=== PATIENT | male | born 1980 | race Caucasian/White ===

== ENCOUNTER 2017-12-18 02:02 | Emergency (ER) | payer OTHER ==
[~2017-12-18] VITALS: Ht 180.3 cm; Wt 90.7 kg
[~2017-12-18 02:02] MED LIST: AMBIEN5 M1 PO; BACTRIM DS 8001 TAB PO; BACTRIM DS TAB1 EACH PO; BACTROBAN OINT.1 BOX NASB; BACTROBAN OINT.30 GM NAS; BENZTROPINE MESY1 M1 PO; BENZTROPINE MESY2 M1 PO; BENZTROPINE MESY2 MG PO; CEPHALEXIN500 MG PO; CHLORPROMAZINE100 M2 PO; CHLORPROMAZINE50 M1 PO; CIPRO 500MG (E500 MG PO; CLEOCIN HCL300 MG PO; CLINDAMYCIN HY300 MG PO; CLONAZEPAM1 M2 PO; CLONAZEPAM2 M2 PO; HYDROCODONE/ACE1 TA1 PO; IBUPROFEN800 M1 PO; LOTRIMIN CR1 %/30 GM TOP; OXYCODONE5 M1 PO; PERCOCET 325 MG1 TA2 PO; PERCOCET 5-3251 EACH PO; PROPRANOLOL ER80 MG PO; PROPRANOLOL HCL40 MG PO; SERTRALINE HCL100 MG PO; SERTRALINE HYD100 MG PO; TOPAMAX50 M1 PO; TOPIRAMATE100 M2 PO; VIBRAMYCIN 100100 MG PO; VICODIN 300 MG-1 TAB PO; VICODIN 5-3001 EACH PO; VICODIN5-300 PO
--- NOTE | 2017-12-18 02:30 | ED UPPER/LOWER EXTREMITY COMPL ---
History of Present Illness General Chief Complaint: Hand or Wrist Injury Stated Complaint: LEFT RING FINGER INJURY Source: patient Exam Limitations: no limitations Vital Signs & Intake/Output Vital Signs & Intake/Output Vital Signs Date Time Temp Pulse Resp B/P B/P Pulse O2 O2 Flow FiO2 Mean Ox Delivery Rate 12/18 0346 97.6 77 20 138/89 99 Room Air 12/18 228 97.9 78 18 132/66 97 Room Air 12/19 223 Room Air Allergies Coded Allergies: Penicillins (Severe, ANAPHYLAXIS 12/18/17) red dye (Mild, ITCHING 12/18/17) Reconcile Medications Benztropine Mesylate 1 MG TABLET 1 TAB PO DAILY ANXIETY (Reported) Chlorpromazine HCl 100 MG TABLET 1 TAB PO DAILY SCHIZOPHRENIA (Reported) Chlorpromazine HCl 100 MG TABLET 3 TAB PO QPM SCHIZOPHRENIA (Reported) Clonazepam 2 MG TABLET 0.5 TAB PO BID ANXIETY (Reported) Ibuprofen 800 MG TABLET 1 TAB PO TID PRN pain Ibuprofen 800 MG TABLET 1 TAB PO Q8 PRN PAIN Ibuprofen 800 MG TABLET 1 TAB PO TID PRN pain Oxycodone HCl/Acetaminophen (Percocet 5-325 MG Tablet) 5 MG-325 MG TABLET 1 TAB PO BID PRN pain Sertraline HCl 100 MG TABLET 2 TAB PO DAILY MENTAL HEALTH (Reported) Topiramate 100 MG TABLET 1 TAB PO BID HEADACHES (Reported) Zolpidem Tartrate (Ambien) 5 MG TABLET 1 TAB PO QPM SLEEP (Reported) Triage Note: TRIAGE: PATIENT TO ER FROM HOME REPORTING S/P INJURY TO L RING FINGER APPROX 3 DAYS AGO, +SWELLING SINCE. PATIENT NOTED W/ RING TO FINGER, UNABLE TO REMOVE D/T SWELLING. "MY VISITING NURSE TOLD ME TO GET HERE PATRICIA TO REMOVE MY RING," PER PATIENT. PATIENT ALSO STATES "TRIED TO REMOVE IT MYSELF W/ NAIL CLIPPERS, DIDN'T WORK." Triage Nurses Notes Reviewed? yes Onset: Abrupt Duration: hour(s): Timing: single episode today Severity: mild Pain/Injury Location: Left: 4th finger. Method of Injury: direct blow Modifying Factors: Worsens With: movement. Associated Symptoms: left 4th digit swelling HPI: 37 yo gentleman, recently endured Right MCP fractures, presents with left 4th digit pain. He notes that he caught his ring on something and kamala his left finger. "I think it's broken." He notes swelling, pain, and purplish discoloration. He would like his ring removed. "The finger is swollen and I can't get my ring off." He is otherwise well. Past History Travel History Traveled to [place] past 21 day No Medical History Any Pertinent Medical History? see below for history Neurological: NONE EENT: NONE Cardiovascular: NONE Respiratory: NONE Gastrointestinal: NONE Hepatic: NONE Renal: NONE Musculoskeletal: NONE Psychiatric: bipolar disease, depression, schizophrenia, PARANOID PTSD Endocrine: NONE Blood Disorders: NONE Cancer(s): NONE HVAC ENGINEER/Reproductive: NONE Other Medical Hx: Skin abscesses Surgical History Surgical History: appendectomy Psychosocial History Who do you live with Mother What is your primary language Kosovan Tobacco Use: Refused to answer Family History Hx Contributory? No Review of Systems Review of Systems Constitutional: Reports: no symptoms. EENTM: Reports: no symptoms. Respiratory: Reports: no symptoms. Cardiovascular: Reports: no symptoms. Gastrointestinal/Abdominal: Reports: no symptoms. Genitourinary: Reports: no symptoms. Musculoskeletal: Reports: no symptoms. Skin: Reports: no symptoms. Neurological/Psychological: Reports: no symptoms. Hematologic/Endocrine: Reports: no symptoms. Immunological: Reports: no symptoms. All Other Systems: Reviewed and Negative Physical Exam Physical Exam General Appearance: well developed/nourished, mild distress Head: atraumatic Eyes: Bilateral: PERRL, EOMI. Ears, Nose, Throat: normal pharynx, normal ENT inspection, hearing grossly normal Neck: normal inspection, supple Cardiovascular/Respiratory: regular rate/rhythm Back: normal inspection Hand Left: swelling tenderness mild ecchymosis on left 4th digit. ring intact. Hand Right: hand in bandage Skin: intact, normal color, warm/dry Lymphatic: no anterior cervical brock Progress Differential Diagnosis: contusion, dislocation, fracture, sprain, tendon injury Plan of Care: Current Medications Sig/Art Start time Last Medication Dose Stop Time Status Admin Ibuprofen 800 MG ONCE ONE 12/18 329 UNVr 12/18 (Motrin) 12/18 330 0338 Diagnostic Imaging: Viewed by Me: Radiology Read. Discussed w/RAD: Radiology Read. Radiology Impression: PATIENT: JAREN JORDAN PRESENT AGE: 37 PATIENT ACCOUNT NO: [id number] : 82 LOCATION: [facility] ORDERING PHYSICIAN: Gunnar Resendez MD SERVICE DATE: 12/18/17 EXAM TYPE: RAD - XRY-FINGERS, LEFT EXAMINATION: FINGER 3 VIEWS, LEFT CLINICAL INFORMATION: Left finger pain. Swelling. COMPARISON: None. TECHNIQUE: A PA view of the left hand is provided along with two views of the fourth digit. FINDINGS: There is soft tissue swelling about the fourth digit, particularly about the PIP joint. There is cortical irregularity to the base of the fourth middle phalanx, likely ambulatory services representative of a buckle type fracture. IMPRESSION: Left fourth middle phalanx cortical irregularity likely ambulatory services representative of a buckle type fracture with associated soft tissue swelling. DICTATED BY: Cuate Humphrey MD DATE/TIME DICTATED:12/18/17308 RO[address] [facility] [employer]:LETY DATE/TIME TRANSCRIBED:308 CONFIDENTIAL, DO NOT COPY WITHOUT APPROPRIATE AUTHORIZATION. < Electronically signed in Other Vendor System> SIGNED BY: Cuate Humphrey MD 12/18/17313 Departure Departure Disposition: HOME OR SELF CARE Condition: Stable Clinical Impression Primary Impression: Finger fracture, left Referrals: Munir Bower APRN (PCP/Family) Departure Forms: Customer Survey General Discharge Information Prescriptions: Current Visit Scripts Ibuprofen 1 TAB PO TID PRN pain #30 TAB Comments ring removed by nursing team splint placed by nursing team... pt referred to ortho.
--- NOTE | 2017-12-18 03:14 | RADIOLOGY REPORT ---
EXAMINATION: FINGER 3 VIEWS, LEFT CLINICAL INFORMATION: Left finger pain. Swelling. COMPARISON: None. TECHNIQUE: A PA view of the left hand is provided along with two views of the fourth digit. FINDINGS: There is soft tissue swelling about the fourth digit, particularly about the PIP joint. There is cortical irregularity to the base of the fourth middle phalanx, likely customer success representative of a buckle type fracture. IMPRESSION: Left fourth middle phalanx cortical irregularity likely customer success representative of a buckle type fracture with associated soft tissue swelling.
[2017-12-18] MEDS ORDERED: IBUPROFEN800 M1 PO ×2 (03:27→03:38)
[2017-12-18 03:46] VITALS: BP 138/89
[2017-12-21] MEDS ORDERED: BENZONATATE200 M1 PO (10:55)
[2017-12-21] MEDS ORDERED: NASONEX17 GM NASB (10:55)
[2017-12-21] MEDS ORDERED: DOXYCYCLINE HY100 M2 PO (10:55)
[2017-12-21] MEDS ORDERED: PROVENTIL HFA6.7 GM INH (10:55)
== END 2017-12-18 03:47 ==
LOC: ERH 02:02
DX: S62.625A Displaced fracture of middle phalanx of left ring finger, initial encounter for closed fracture (principal); W23.1XXA Caught, crushed, jammed, or pinched between stationary objects, initial encounter
CPT/HCPCS: 73140-LT